=== PATIENT | male | born 1970 | race Caucasian/White ===

== ENCOUNTER 2016-08-19 10:45 | Inpatient (IN) | payer OTHER ==
[2016-08-19] VITALS (7 sets, daily range): BP systolic 103–146; BP diastolic 60–88; PULSE 83–89; RESP 18–22; TEMP 97.1–98.4; O2SAT 95–97
[~2016-08-19] VITALS: Ht 167.6 cm; Wt 53.9 kg
[~2016-08-19 10:45] MED LIST: CYMB30CA PO; DARU600 PO; DICL75 PO; ENTE1TAB PO; GABA300C3 PO; LAMI150T PO; PLAV75TA PO; PYRI100T4 PO; RITO100 PO; TEMA15 PO; TENO300 PO; VALA1TAB PO
[2016-08-19] MEDS ORDERED: SOMA350T PO (11:55)
[2016-08-19] MEDS ORDERED: ROSU1TAB4 PO (11:55)
[2016-08-19] MEDS ORDERED: ASPI81CH37 CHEW (11:55)
[2016-08-19] MEDS ORDERED: RITO100 PO (11:55)
[2016-08-19] MEDS ORDERED: ACYC800T PO (11:55)
[2016-08-19] MEDS ORDERED: DICL1GEL7 TOPICAL (11:55)
[2016-08-19] MEDS ORDERED: FENT75DI T-DERMAL (11:55)
[2016-08-19] MEDS ORDERED: DARU800T PO (11:55)
[2016-08-19] MEDS ORDERED: PLAV75TA29 PO (11:55)
[2016-08-19] MEDS ORDERED: DOCU100C PO (11:55)
[2016-08-19] MEDS ORDERED: EMTR1TAB4 PO (11:55)
[2016-08-19] MEDS ORDERED: SENN8.6T25 PO (11:55)
[2016-08-19] MEDS ORDERED: ENAL2.5T PO (11:55)
[2016-08-19] MEDS ORDERED: CALC1TAB87 PO (11:55)
[2016-08-19] MEDS ORDERED: ENTE1TAB PO (11:55)
[2016-08-19] MEDS ORDERED: TRAM50TA PO (11:55)
[2016-08-19] MEDS ORDERED: INTE200T PO (11:55)
[2016-08-19] MEDS ORDERED: METF1000 PO (11:55)
[2016-08-19 11:58] LABS: AUTOMATED NEUTROPHIL # 6.3 TH/MM3 (1.8-7.7); BASOPHIL # 0.1 TH/MM3 (0-0.2); BASOPHIL % 0.6 % (0.0-2.0); EOSINOPHIL # 0.4 TH/MM3 (0-0.4); EOSINOPHIL % 3.2 % (0.0-4.0); HEMATOCRIT 44.6 % (39.0-51.0); HEMO FLAGS DIFF FINAL; LYMPH % 30.4 % (9.0-44.0); LYMPHOCYTE # 3.4 TH/MM3 (1.0-4.8); MEAN CELL VOLUME 91.8 FL (80.0-100.0); MEAN CORPUSCULAR HEMOGLOBIN 31.5 PG (27.0-34.0); MEAN CORPUSCULAR HGB CONC 34.3 % (32.0-36.0); NEUT % 56.8 % (16.0-70.0); PLATELET COUNT 168 TH/MM3 (150-450); RED BLOOD COUNT 4.86 MIL/MM3 (4.50-5.90); RED CELL DISTRIBUTION WIDTH 14.1 % (11.6-17.2)
[2016-08-19] MEDS: SODIUM CHLORIDE 0.9% 1000 ML IV SCH (12:00)
[2016-08-19 12:19] LABS: APTT (PATIENT) 25.6 SEC (24.3-30.1); INTERNATIONAL NORMALIZED RATIO 0.9 RATIO
--- NOTE | 2016-08-19 12:51 | HHI.HP ---
[facility] Gerald Cabrales MD Admission Diagnosis Diagnoses: (1) right spontaneous pneumothorat Diagnosis: Principal Chief Complaint: Shortness of breath Travel History International Travel<30 Days: No Contact w/Intl Traveler <30 Da: No Traveled to Known Affected Are: No History of Present Illness Patient is a very pleasant 45-year-old male with known history of HIV followed closely by Dr. Cabrales. Patient with a history of type 2 diabetes on metformin. States very good hypoglycemic awareness. His last CD4 count was in the 800s. Last Viral load is 0. About 3 days prior to admission patient developed a sudden onset of sharp right sided chest pain. Later that evening with pleuritic component of the chest pain. Patient states shortness of breath with deep inspiration and with coughing. This is worse with laying down and. He also expressed some feeling of something snapping inside his right side of the chest. The patient denies any recent trauma. Denies any fever, chills or any sputum production. He was seen in the clinic by Dr. Cabrales who ordered a chest x-ray which came back positive for a right sided pneumothorax and patient was sent here for chest tube insertion and further evaluation. Review of Systems Constitutional: DENIES: Diaphoretic episodes, Fatigue, Fever, Weight gain, Weight loss, Chills, Dizziness, Change in appetite, Night Sweats Endocrine: DENIES: Heat/cold intolerance, Polydipsia, Polyuria, Polyphagia Eyes: DENIES: Blurred vision, Diplopia, Eye inflammation, Eye pain, Vision loss , Photosensitivity, Double Vision Ears, nose, mouth, throat: DENIES: Tinnitus, Hearing loss, Vertigo, Nasal discharge, Oral lesions, Throat pain, Hoarseness, Ear Pain, Running Nose, Epistaxis, Sinus Pain, Toothache, Odynophagia Respiratory: DENIES: Apneas, Cough, Snoring, Wheezing, Hemoptysis, Sputum production, Shortness of breath Cardiovascular: DENIES: Chest pain, Palpitations, Syncope, Dyspnea on Exertion , PND, Lower Extremity Edema, Orthopnea, Claudication Gastrointestinal: COMPLAINS OF: Diarrhea Genitourinary: DENIES: Sexual dysfunction, Urinary frequency, Urinary incontinence, Urgency, Hematuria, Dysuria, Nocturia, Penile Discharge, Testicular Pain, Testicular Swelling Musculoskeletal: COMPLAINS OF: Back pain (chronic pain), DENIES: Joint pain, Muscle aches, Stiffness, Joint Swelling, Neck pain Integumentary: DENIES: Abnormal pigmentation, Nail changes, Pruritus, Rash Hematologic/lymphatic: DENIES: Bruising, Lymphadenopathy Immunologic/allergic: DENIES: Eczema, Urticaria Neurologic: DENIES: Abnormal gait, Headache, Localized weakness, Paresthesias, Seizures, Speech Problems, Tremor, Poor Balance Psychiatric: DENIES: Anxiety, Confusion, Mood changes, Depression, Hallucinations, Agitation, Suicidal Ideation, Homicidal Ideation, Delusions Past Family Social History Past Medical History HIV Chronic pain Diabetes type 2 [id number] Hypertension 3 years ago had an episode of difficulty walking and a head CT done there showed questionable and was started on Plavix. Hdenies any history of acute coronary syndrome or Past Surgical History No major surgeries Reported Medications Ultram 50 mg 1 tab every 12 hours as needed for breakthrough pain. Duragesic 25 g one patch every 48 hours last change August 18 Glucophage 1 g twice a day Descovy 600 mg 2 tablets twice a day Ecotrin 81 mg 1 tablet daily Crestor 5 mg 1 tab 3 times a week Wednesday at bedtime carisoprodol 1 tab at bedtime Caltrate with vitamin D 3 800 units 1 tab twice a day Vitamin D2 50,000 units 1 capsule daily once a month Vasotec 2.5 mg daily at bedtime Norvir 100 mg 2 tabs a Intelence 200 mg 1 tab twice a voltaren 1% gel apply 4 g by transdermal at bedtime Plavix 75 mg daily Senna 8.6 mg 1 tab twice a baraclude 1 mg the right daily Acyclovir 800 mg 1 tab daily Colace 100 mg twice a day Allergies: Coded Allergies: Tetanus Toxoid (Unverified Allergy, Unknown, swelling all over and hives, 08/19/16) Family History Mother has some heart issues. history of malignancy in the family- patient very specific Social History Former smoker no history of IV drug use, no alcohol use Physical Exam Vital Signs Vital Signs Date Time Temp Pulse Resp B/P Pulse Ox O2 Delivery O2 Flow Rate FiO2 08/19/16 11:14 98.4 89 20 146/88 95 Physical Exam GENERAL: This is a well-nourished, well-developed patient, in no apparent distress. SKIN: No rashes, ecchymoses or lesions. Cool and dry. HEAD: Atraumatic. Normocephalic. EYES: Pupils equal round and reactive. Extraocular motions intact. No scleral icterus. No injection or drainage. ENT: Nose without bleeding, purulent drainage Throat without erythema, tonsillar hypertrophy or exudate. . Airway patent. No oral thrush NECK: Trachea midline. No JVD or lymphadenopathy. Supple, nontender, no meningeal signs. CARDIOVASCULAR: Regular rate and rhythm without murmurs, gallops, or rubs. RESPIRATORY: Decreased breath sounds on the right side, no Rales no wheezes GASTROINTESTINAL: Abdomen soft, non-tender, nondistended. No hepato-splenomegaly , or palpable masses. No guarding. MUSCULOSKELETAL: Extremities without clubbing, cyanosis, or edema. No joint tenderness, effusion, or edema noted. No calf tenderness. Negative Homans sign bilaterally. NEUROLOGICAL: Awake and alert. Cranial nerves II through XII intact. Motor and sensory grossly within normal limits. Five out of 5 muscle strength in all muscle groups. Normal speech. Laboratory Laboratory Tests Test 08/19/16 11:35 White Blood Count 11.0 Red Blood Count 4.86 Hemoglobin 15.3 Hematocrit 44.6 Mean Corpuscular Volume 91.8 Mean Corpuscular Hemoglobin 31.5 Mean Corpuscular Hemoglobin 34.3 Concent Red Cell Distribution Width 14.1 Platelet Count 168 Mean Platelet Volume 8.0 Neutrophils (%) (Auto) 56.8 Lymphocytes (%) (Auto) 30.4 Monocytes (%) (Auto) 9.0 Eosinophils (%) (Auto) 3.2 Basophils (%) (Auto) 0.6 Neutrophils # (Auto) 6.3 Lymphocytes # (Auto) 3.4 Monocytes # (Auto) 1.0 Eosinophils # (Auto) 0.4 Basophils # (Auto) 0.1 CBC Comment DIFF FINAL Differential Comment Prothrombin Time 10.0 Prothromb Time International 0.9 Ratio Activated Partial 25.6 Thromboplast Time Result Diagram: 08/19/16 5249 Assessment and Plan Assessment and Plan 45-year-old male presenting with increasing shortness of breath past 3 days and on evaluation Right Spontaneous pneumothorax. Interventional radiology has been consulted for chest tube insertion evaluation. 02 NC 2L HIV. Patient with very good follow-up and compliance with medications. continue on HIV medications per patient last viral load 0 Diabetes type 2. ADA diet. Monitor blood sugars in-house History of abnormal CT head- sounds like an "old spot". Was started on Plavix as OP by PCP. We'll hold for now as patient is for procedure. Hypertension. Continue on Vasotec 2.5 mg daily and aspirin daily. Chronic pain. Will continue on Duragesic patch every 48 hours. Will increase Ultram to every 6 when necessary for pain. Discussed with patient. Code Status Full code Physician Certification 2 Midnight Certification Type: Admission for Inpatient Services Order for Inpatient Services The services are ordered in accordance with Medicare regulations or non- Medicare payer requirements, as applicable. In the case of services not specified as inpatient-only, they are appropriately provided as inpatient services in accordance with the 2-midnight benchmark. Estimated LOS (days): 3 days is the estimated time the patient will need to remain in the hospital, assuming treatment plan goals are met and no additional complications. Post-Hospital Plan: Not yet determined Bossman Duke MD August 19, 2016 12:51
[2016-08-19] MEDS ORDERED: LORazepam 2 MG/ML VIAL ONE (13:32)
[2016-08-19] MEDS ORDERED: fentaNYL CITRATE 250 MCG/5 ML AMP ONE (13:53)
--- NOTE | 2016-08-19 14:31 | PD.RAD ---
Post Procedure Progress Note Pre Procedure Diagnosis: (1) right spontaneous pneumothorat Post Procedure Diagnosis: (1) right spontaneous pneumothorat Procedure Date: August 19, 2016 Supervising Radiologist: Manuelito Olguin Proceduralist/Assist: Leticia Avalos, RT(R), Jimbo Malik RT(R)() Estimated blood loss: <5 ml Anesthesia: Local Plan of Activity Patient to Unit: Nursing Unit Patient Condition: Good Additional Comments: Placed 10F [place] Catheter. Pleural septations precluded ideal apical placement. See PACS Report for procedural detail/treatment Manuelito Olguin MD August 19, 2016 14:31
[2016-08-19] MEDS ORDERED: oxyCODONE/ACETAMINOPHEN 10 MG/325 MG TAB PO ONE (15:00)
--- NOTE | 2016-08-19 15:44 | RADRPT ---
EXAM DATE/TIME: 08/19/2016 13:48 [facility] COMPARISON: No previous studies available for comparison. INDICATIONS : Patient with a history right pneumothorax. MEDICAL HISTORY : CVA HIV Hepatitis B SURGICAL HISTORY : Nose repair ENCOUNTER: Initial ACUITY: 4 - 6 days PAIN SCORE: 5/10 LOCATION: Back FLUORO TIME: 2.6 minutes IMAGE SERIES: 1 SEDATION TIME: 30 minutes MEDICATION(S): 1.) 100 mcg fentanyl (Sublimaze) IV 2.) 1 mg lorazepam (Ativan) IV DEVICE(S): 1.) 10 [place] non-locking catheter PROCEDURE : 1. Fluoroscopically guided chest tube placement. 2. Conscious sedation with continuous EKG and oximetry monitoring. The risks, benefits and alternatives to the procedure were explained and verbal and written consent w as obtained. The site was prepped in sterile fashion. Full sterile technique was used, including ca p, mask, sterile gloves and gown and a large sterile sheet. Hand hygiene and 2% chlorhexidine and/or betadine/alcohol prep was utilized per protocol for cutaneous antisepsis. The skin and subcutaneous tissues were infiltrated with local anesthetic solution. With fluoroscopic guidance the chest was punctured between the first and second interspace and the pr escribed catheter was placed at the lung apex. Catheter could not be ideally positioned due to appare nt septations in the pleural space which deflected the catheter medially and inferiorly. Ultimately, the catheter was placed in the lateral superior hemithorax. Wall suction was applied. Post procedure images demonstrate satisfactory position of the tube. The catheter was sutured in place and a Percu -Stay was applied. Conscious sedation was performed with the prescribed dosages and duration as above in the presence of an independent trained radiology nurse to assist in the monitoring of the patient. EKG and oximetry remained stable throughout the procedure. The patient tolerated the procedure well and there were n o complications. The patient was sent to post anesthesia recovery in stable condition. CONCLUSION: 1. Fluoroscopic guided placement of right-sided chest tube for treatment of spontaneous pneumothorax, as above. 2. Apparent septations in the right pleural space precluded ideal apical positioning of the chest tub eSherrell Olguin MD on August 19, 2016 at 15:38 Board Certified Radiologist. This report was verified electronically.
[2016-08-19] MEDS: traMADol HCL 50 MG TAB PO PRN ×2 (16:44→20:54)
[2016-08-19] MEDS: ATORVASTATIN 10 MG TAB PO SCH (20:49)
[2016-08-19] MEDS: DOCUSATE SODIUM 100 MG CAP PO SCH (20:49)
[2016-08-19] MEDS: RITONAVIR 100 MG TAB PO SCH (20:49)
[2016-08-19] MEDS: DARUNAVIR 600 MG TAB PO SCH (20:50)
[2016-08-19] MEDS: ENALAPRIL MALEATE 2.5 MG TAB PO SCH (20:50)
[2016-08-19] MEDS: SENNOSIDES 8.6 MG TAB PO SCH (20:50)
[2016-08-19] MEDS: CALCIUM/VITAMIN D 250 MG/125 U TAB PO SCH (20:50)
[2016-08-19] MEDS: CARISOPRODOL 350 MG TAB PO PRN (20:54)
[2016-08-19] MEDS: DICLOFENAC TOPICAL SCH (20:57)
[2016-08-20] VITALS: BP 117/73; PULSE 86; RESP 20; TEMP 96.3; O2SAT 98
[2016-08-20] MEDS: traMADol HCL 50 MG TAB PO PRN ×5 (03:38→23:00)
[2016-08-20 08:00] VITALS: BP 119/77; PULSE 82; RESP 17; TEMP 97.1; O2SAT 97
[2016-08-20 08:12] VITALS: O2SAT 98
[2016-08-20] MEDS: CALCIUM/VITAMIN D 250 MG/125 U TAB PO SCH ×2 (08:46→21:00)
[2016-08-20] MEDS: RITONAVIR 100 MG TAB PO SCH ×2 (08:46→21:00)
[2016-08-20] MEDS: DOCUSATE SODIUM 100 MG CAP PO SCH ×2 (08:46→21:00)
[2016-08-20] MEDS: SENNOSIDES 8.6 MG TAB PO SCH ×2 (08:47→21:00)
[2016-08-20] MEDS: ACYCLOVIR 800 MG TAB PO SCH (08:47)
[2016-08-20] MEDS: ENTECAVIR 0.5 MG TAB PO SCH (08:54)
[2016-08-20] MEDS: ETRAVIRINE 200 MG PO SCH (08:55)
[2016-08-20] MEDS: PATIENT OWN MEDICATION (Emtricitabine-Tenofovir Alafenamide (Descovy) 1 TAB) PO SCH (08:56)
[2016-08-20] MEDS ORDERED: fentaNYL 75 MCG/HR PATCH T-DERMAL SCH ×2 (09:00→21:00)
--- NOTE | 2016-08-20 10:32 | HHI.PR ---
Subjective Remarks pain -on chest tube site with deep inspiration afebrile, no nausea or vomiting Objective Vitals Vital Signs Date Time Temp Pulse Resp B/P Pulse Ox O2 Delivery O2 Flow Rate FiO2 08/20/16 08:12 98 21 08/20/16 08:00 97.1 82 17 119/77 97 08/20/16 00:00 96.3 86 20 117/73 98 08/19/16 20:00 97.2 87 22 106/68 97 08/19/16 16:00 97.1 83 18 130/83 97 08/19/16 15:30 88 20 103/60 96 08/19/16 15:00 87 20 109/67 96 08/19/16 14:30 87 20 110/79 96 08/19/16 14:15 98.4 88 20 131/84 97 08/19/16 11:14 98.4 89 20 146/88 95 I/O 08/19/16 08/19/16 08/19/16 08/20/16 08/20/16 08/20/16 07:00 15:00 23:00 07:00 15:00 23:00 Intake Total 320 ml 120 ml Output Total 300 ml 450 ml Balance 20 ml -330 ml Intake Oral 320 ml 120 ml Output Urine Total 300 ml 450 ml # Bowel Movements 0 0 Result Diagram: 08/19/16 1135 Imaging Last Impressions Chest Tube Insertion 08/19/16 1318 Signed Impressions: Service Date/Time: Friday, August 19, 2016 13:48 - CONCLUSION: 1. Fluoroscopic guided placement of right-sided chest tube for treatment of spontaneous pneumothorax, as above. 2. Apparent septations in the right pleural space precluded ideal apical positioning of the chest tube. Manuelito Olguin MD Objective Remarks awake and alert, no acute distress anicteric lungs + breath sounds equal regular rhythm abdomen soft, nontender extremities no edema, no calf swelling or tenderness Procedures 08/19- Chest tube placement- right A/P Problem List: (1) right spontaneous pneumothorat Status: Acute Assessment and Plan 45-year-old male presenting with increasing shortness of breath past 3 days and on evaluation Right sided Spontaneous pneumothorax S/P Chest tube placement- 08/19 Interventional radiology ff for chest tube management. HIV. Patient with very good follow-up and compliance with medications. continue on HIV medications per patient last viral load 0 Diabetes type 2. ADA diet. Monitor blood sugars in-house History of abnormal CT head- sounds like an "old spot". Was started on Plavix as OP by PCP. We'll hold for now Hypertension. Continue on Vasotec 2.5 mg daily and aspirin daily. Chronic pain. Will continue on Duragesic patch every 48 hours. Ultram to every 4- 6 when necessary for pain. TEDS for DVT prophylaxis Bossman Duke MD Aug 20, 2016 10:32
[2016-08-20] MEDS: SODIUM CHLORIDE 0.9% 1000 ML IV SCH (11:46)
[2016-08-20 12:00] VITALS: BP 130/79; PULSE 85; RESP 17; TEMP 97.3; O2SAT 97
--- NOTE | 2016-08-20 15:05 | RADRPT ---
EXAM DATE/TIME: 08/20/2016 14:29 [facility] COMPARISON: No previous studies available for comparison. INDICATIONS : Pneumothorax, Chest pressure. MEDICAL HISTORY : Hepatitis B. HIV. Cva SURGICAL HISTORY : None. ENCOUNTER: Initial ACUITY: 1 day PAIN SCORE: 5/10 LOCATION: Bilateral chest FINDINGS: There is a right-sided chest tube in place without residual pneumothorax. Lungs are otherwise clear. Cardiomediastinal contours are within normal limits. Bony thorax is intact. CONCLUSION: 1. Right-sided chest tube in good position with interval resolution of right-sided pneumothorax. Manuelito Olguin MD on August 20, 2016 at 14:56 Board Certified Radiologist. This report was verified electronically.
[2016-08-20 16:00] VITALS: BP 135/84; PULSE 83; RESP 17; TEMP 97.8; O2SAT 96
[2016-08-20 20:00] VITALS: BP 131/86; PULSE 88; RESP 20; TEMP 97.7; O2SAT 96
[2016-08-20] MEDS ORDERED: FENT25DI T-DERMAL (20:40)
[2016-08-20] MEDS: DICLOFENAC TOPICAL SCH (21:00)
[2016-08-20] MEDS: ATORVASTATIN 10 MG TAB PO SCH (21:00)
[2016-08-20] MEDS: ENALAPRIL MALEATE 2.5 MG TAB PO SCH (21:00)
[2016-08-20] MEDS: DARUNAVIR 600 MG TAB PO SCH (21:00)
[2016-08-20] MEDS ORDERED: FENTANYL 75 MCG/HR TOPICAL SCH (21:00)
[2016-08-20] MEDS: CARISOPRODOL 350 MG TAB PO PRN (23:00)
[2016-08-21] VITALS: BP 126/82; PULSE 84; RESP 18; TEMP 98.8; O2SAT 97
--- NOTE | 2016-08-21 06:55 | RADRPT ---
EXAM DATE/TIME: 08/21/2016 06:18 [facility] COMPARISON: CHEST EXPIRATION ONLY, August 20, 2016, 14:29. INDICATIONS : Short of breath, evaluate right side pneumothorax and chest tube MEDICAL HISTORY : Hepatitis B. SURGICAL HISTORY : None. ENCOUNTER: Subsequent ACUITY: 2 days PAIN SCORE: 8/10 LOCATION: Right chest FINDINGS: The cardiac silhouette is normal in transverse diameter. A right chest tube is in place. There is no evidence of pneumothorax. The lungs are free of acute parenchymal opacity. No effusions are identifie d. CONCLUSION: 1. There is no evidence of pneumothorax. Adria Shelby MD on August 21, 2016 at 6:53 Board Certified Radiologist. This report was verified electronically.
[2016-08-21 08:00] VITALS: BP 121/72; PULSE 85; RESP 18; TEMP 96.9; O2SAT 96
[2016-08-21] MEDS: traMADol HCL 50 MG TAB PO PRN ×3 (08:39→20:27)
[2016-08-21] MEDS: ETRAVIRINE 200 MG PO SCH (08:40)
[2016-08-21] MEDS: CALCIUM/VITAMIN D 250 MG/125 U TAB PO SCH ×2 (08:40→20:16)
[2016-08-21] MEDS: DOCUSATE SODIUM 100 MG CAP PO SCH ×2 (08:40→20:16)
[2016-08-21] MEDS: ENTECAVIR 0.5 MG TAB PO SCH (08:40)
[2016-08-21] MEDS: PATIENT OWN MEDICATION (Emtricitabine-Tenofovir Alafenamide (Descovy) 1 TAB) PO SCH (08:40)
[2016-08-21] MEDS: RITONAVIR 100 MG TAB PO SCH ×2 (08:40→20:16)
[2016-08-21] MEDS: SODIUM CHLORIDE 0.9% 1000 ML IV SCH (08:41)
[2016-08-21] MEDS: ACYCLOVIR 800 MG TAB PO SCH (08:41)
[2016-08-21] MEDS: SENNOSIDES 8.6 MG TAB PO SCH ×2 (08:41→20:17)
--- NOTE | 2016-08-21 08:50 | HHI.PR ---
Subjective Remarks overnight, chest tube clamped some pain on chest tube site and pain on deep breathing Objective Vitals Vital Signs Date Time Temp Pulse Resp B/P Pulse Ox O2 Delivery O2 Flow Rate FiO2 08/21/16 00:00 98.8 84 18 126/82 97 08/20/16 20:00 97.7 88 20 131/86 96 08/20/16 16:00 97.8 83 17 135/84 96 08/20/16 12:00 97.3 85 17 130/79 97 I/O 08/20/16 08/20/16 08/20/16 08/21/16 08/21/16 08/21/16 07:00 15:00 23:00 07:00 15:00 23:00 Intake Total 120 ml 1200 ml 440 ml 240 ml Output Total 450 ml 600 ml 550 ml Balance -330 ml 1200 ml -160 ml -310 ml Intake Oral 120 ml 1200 ml 440 ml 240 ml IV Total 0 ml Output Urine Total 450 ml 600 ml 550 ml Chest Tube Drainage Total 0 ml # Voids 3 # Bowel Movements 0 0 0 0 Result Diagram: 08/19/16 1135 Imaging Last Impressions Chest X-Ray 08/21/16 0600 Signed Impressions: Service Date/Time: Sunday, August 21, 2016 06:18 - CONCLUSION: 1. There is no evidence of pneumothorax. Adria Shelby MD Chest Tube Insertion 08/19/16 1318 Signed Impressions: Service Date/Time: Friday, August 19, 2016 13:48 - CONCLUSION: 1. Fluoroscopic guided placement of right-sided chest tube for treatment of spontaneous pneumothorax, as above. 2. Apparent septations in the right pleural space precluded ideal apical positioning of the chest tube. Manuelito Olguin MD Objective Remarks awake and alert, no acute distress anicteric lungs + breath sounds equal, no rales or wheezes, CT in place, right regular rhythm abdomen soft, nontender extremities no edema, no calf swelling or tenderness Procedures 08/19- Chest tube placement- right A/P Problem List: (1) right spontaneous pneumothorat Status: Acute Assessment and Plan 45-year-old male presenting with increasing shortness of breath past 3 days and on evaluation Right sided Spontaneous pneumothorax S/P Chest tube placement- 08/[address] clamped since last evening 08/20. tolerated well. Interventional radiology ff for chest tube management.. Repeat CXR this am= PTX. resolved -Likely will have CT removed today. DC if cleared with IR HIV. Patient with very good follow-up and compliance with medications. continue on HIV medications per patient last viral load 0 Diabetes type 2. ADA diet. Monitor blood sugars in-house. good readings History of abnormal CT head- sounds like an "old spot". Was started on Plavix as OP by PCP. We'll hold for now Hypertension. Continue on Vasotec 2.5 mg daily and aspirin daily. Chronic pain. Will continue on Duragesic patch every 48 hours. Ultram to every 4- 6 when necessary for pain. TEDS for DVT prophylaxis Increase activity as tolerated Bossman Duke MD Aug 21, 2016 08:50
[2016-08-21 12:00] VITALS: BP 109/62; PULSE 89; RESP 18; TEMP 97.4; O2SAT 95
--- NOTE | 2016-08-21 12:24 | RADRPT ---
EXAM DATE/TIME: 08/21/2016 11:42 [facility] COMPARISON: CHEST EXPIRATION ONLY, August 20, 2016, 14:29. CHEST EXPIRATION ONLY, August 21, 2016, 6:18. CHEST SING LE AP, February 05, 2014, 17:19. INDICATIONS : Chest Tube Removal MEDICAL HISTORY : Pneumothorax,Hepatitis B., HIV., Cva SURGICAL HISTORY : Nose repair ENCOUNTER: Subsequent ACUITY: 3 days PAIN SCORE: 0/10 LOCATION: Bilateral chest FINDINGS: A single view of the chest demonstrates the lungs to be symmetrically aerated without evidence of mas s or effusion. Minimal linear atelectasis/scarring of the left hemidiaphragm. Right-sided thoracostom y tube has been removed. There is no residual pneumothorax. The cardiomediastinal contours are unrema rkable. Osseous structures are intact. CONCLUSION: 1. Interval removal of the right-sided thoracostomy tube without residual or recurrent pneumothorax 2. Minimal atelectatic changes/scarring above the left hemidiaphragm. 3. Lungs are otherwise clear with no acute infiltrate.. Wesly Trejo MD on August 21, 2016 at 12:17 Board Certified Radiologist. This report was verified electronically.
--- NOTE | 2016-08-21 15:38 | RADRPT ---
EXAM DATE/TIME: 08/21/2016 00:00 [facility] COMPARISON: No previous studies available for comparison. INDICATIONS : S/P pneumothorax DEVICE(S): 1.) Vaseline occlusive dressing PROCEDURE : Chest tube removal. Using aseptic technique the previously placed chest tube was easily removed in one piece and Vaseline gauze and sterile dressing was applied. Chest radiograph is to be obtained. CONCLUSION: Uncomplicated chest tube removal. Manuelito Olguin MD on August 21, 2016 at 11:49 Board Certified Radiologist. This report was verified electronically.
[2016-08-21 16:00] VITALS: BP 117/71; PULSE 80; RESP 18; TEMP 97; O2SAT 95
[2016-08-21 20:00] VITALS: BP 129/87; PULSE 79; RESP 18; TEMP 98.2; O2SAT 97
[2016-08-21] MEDS: DARUNAVIR 600 MG TAB PO SCH (20:16)
[2016-08-21] MEDS: ATORVASTATIN 10 MG TAB PO SCH (20:16)
[2016-08-21] MEDS: DICLOFENAC TOPICAL SCH (20:17)
[2016-08-21] MEDS: ENALAPRIL MALEATE 2.5 MG TAB PO SCH (20:17)
[2016-08-21] MEDS: CARISOPRODOL 350 MG TAB PO PRN (20:26)
[2016-08-22] VITALS: BP 109/73; PULSE 85; RESP 20; TEMP 97.6; O2SAT 96
[2016-08-22 08:00] VITALS: BP 117/72; PULSE 67; RESP 18; TEMP 96.3; O2SAT 95
[2016-08-22] MEDS: ACYCLOVIR 800 MG TAB PO SCH (09:00)
[2016-08-22] MEDS: DOCUSATE SODIUM 100 MG CAP PO SCH (09:00)
[2016-08-22] MEDS: SENNOSIDES 8.6 MG TAB PO SCH (09:00)
[2016-08-22] MEDS: CALCIUM/VITAMIN D 250 MG/125 U TAB PO SCH (09:00)
[2016-08-22] MEDS: PATIENT OWN MEDICATION (Emtricitabine-Tenofovir Alafenamide (Descovy) 1 TAB) PO SCH (09:00)
[2016-08-22] MEDS: ETRAVIRINE 200 MG PO SCH (09:00)
[2016-08-22] MEDS: RITONAVIR 100 MG TAB PO SCH (09:00)
[2016-08-22] MEDS: ENTECAVIR 0.5 MG TAB PO SCH (09:00)
[2016-08-22] MEDS ORDERED: fentaNYL 75 MCG/HR PATCH T-DERMAL SCH (09:00)
--- NOTE | 2016-08-22 09:23 | HHI.PR ---
Subjective Remarks doing great up and ambualting- maintaining sats at room air minimal pain Objective Vitals Vital Signs Date Time Temp Pulse Resp B/P Pulse Ox O2 Delivery O2 Flow Rate FiO2 08/22/16 00:00 97.6 85 20 109/73 96 08/21/16 20:00 98.2 79 18 129/87 97 08/21/16 16:00 97.0 80 18 117/71 95 08/21/16 12:00 97.4 89 18 109/62 95 I/O 08/21/16 08/21/16 08/21/16 08/22/16 08/22/16 08/22/16 07:00 15:00 23:00 07:00 15:00 23:00 Intake Total 240 ml 1000 ml 480 ml 480 ml Output Total 550 ml Balance -310 ml 1000 ml 480 ml 480 ml Intake Oral 240 ml 1000 ml 480 ml 480 ml IV Total 0 ml Output Urine Total 550 ml Chest Tube Drainage Total 0 ml # Voids 2 2 2 # Bowel Movements 0 0 Result Diagram: 08/19/16 1135 Imaging Last Impressions Chest X-Ray 08/21/16 1200 Signed Impressions: Service Date/Time: Sunday, August 21, 2016 11:42 - CONCLUSION: 1. Interval removal of the right-sided thoracostomy tube without residual or recurrent pneumothorax 2. Minimal atelectatic changes/scarring above the left hemidiaphragm. 3. Lungs are otherwise clear with no acute infiltrate.. Wesly Trejo MD Tunnelled Chest Tube Removal 08/21/16 0000 Signed Impressions: Service Date/Time: Sunday, August 21, 2016 00:00 - CONCLUSION: Uncomplicated chest tube removal. Manuelito Olguin MD Chest Tube Insertion 08/19/16 1318 Signed Impressions: Service Date/Time: Friday, August 19, 2016 13:48 - CONCLUSION: 1. Fluoroscopic guided placement of right-sided chest tube for treatment of spontaneous pneumothorax, as above. 2. Apparent septations in the right pleural space precluded ideal apical positioning of the chest tube. Manuelito Olguin MD Objective Remarks awake and alert, no acute distress anicteric lungs + breath sounds equal, no rales or wheezes, CT site- no erythema, dry. regular rhythm abdomen soft, nontender extremities no edema, no calf swelling or tenderness Procedures 08/19- Chest tube placement- right A/P Problem List: (1) right spontaneous pneumothorat Status: Acute Assessment and Plan 45-year-old male presenting with increasing shortness of breath past 3 days and on evaluation Right sided Spontaneous pneumothorax S/P Chest tube placement- 08/[address] clamped since last evening 08/20. tolerated well. CT removed 08/21. repeat CXR resolved pneumothorax HIV. Patient with very good follow-up and compliance with medications. continue on HIV medications per patient last viral load 0 Diabetes type 2. ADA diet. Monitor blood sugars in-house. good readings History of abnormal CT head- sounds like an "old spot". Was started on Plavix as OP by PCP. Hypertension. Continue on Vasotec 2.5 mg daily and aspirin daily. Chronic pain. Will continue on Duragesic patch every 48 hours. Ultram to every 4- 6 when necessary for pain. TEDS for DVT prophylaxis Increase activity as tolerated DC home today with OP ff up with Bossman Garcia MD Aug 22, 2016 09:23
[2016-08-22] MEDS ORDERED: ULTR50TA5 PO (09:26)
[2016-08-22] MEDS ORDERED: REMOVE OLD DURAGESIC (FENTANYL) PATCH T-DERMAL SCH (21:00)
--- NOTE | 2016-08-28 08:38 | HHI.DS ---
Discharge Summary Admission Date August 19, 2016 at 14:30 Discharge Date: Aug 22, 2016 Admitting Diagnosis right Pneumothorax (1) right spontaneous pneumothorat Diagnosis: Principal Procedures 08/19- Chest tube placement- right Brief History - From Admission Patient is a very pleasant 45-year-old male with known history of HIV followed closely by Dr. Lin. Patient with a history of type 2 diabetes on metformin. States very good hypoglycemic awareness. His last CD4 count was in the 800s. Last Viral load is 0. About 3 days prior to admission patient developed a sudden onset of sharp right sided chest pain. Later that evening with pleuritic component of the chest pain. Patient states shortness of breath with deep inspiration and with coughing. This is worse with laying down and. He also expressed some feeling of something snapping inside his right side of the chest. The patient denies any recent trauma. Denies any fever, chills or any sputum production. He was seen in the clinic by Dr. Lin who ordered a chest x-ray which came back positive for a right sided pneumothorax and patient was sent here for chest tube insertion and further evaluation. Imaging Last Impressions Chest X-Ray 08/21/16 1200 Signed Impressions: Service Date/Time: Sunday, August 21, 2016 11:42 - CONCLUSION: 1. Interval removal of the right-sided thoracostomy tube without residual or recurrent pneumothorax 2. Minimal atelectatic changes/scarring above the left hemidiaphragm. 3. Lungs are otherwise clear with no acute infiltrate.. Wesly Trejo MD Tunnelled Chest Tube Removal 08/21/16 0000 Signed Impressions: Service Date/Time: Sunday, August 21, 2016 00:00 - CONCLUSION: Uncomplicated chest tube removal. Manuelito Olguin MD Chest Tube Insertion 08/19/16 1318 Signed Impressions: Service Date/Time: Friday, August 19, 2016 13:48 - CONCLUSION: 1. Fluoroscopic guided placement of right-sided chest tube for treatment of spontaneous pneumothorax, as above. 2. Apparent septations in the right pleural space precluded ideal apical positioning of the chest tube. Manuelito Olguin MD PE at Discharge awake and alert, no acute distress anicteric lungs + breath sounds equal, no rales or wheezes, CT site- no erythema, dry. regular rhythm abdomen soft, nontender extremities no edema, no calf swelling or tenderness Pt update on day of discharge no chest pain or shortness of breath , ambulating, good sats at room air Hospital Course 45-year-old male presenting with increasing shortness of breath past 3 days and on evaluation Right sided Spontaneous pneumothorax S/P Chest tube placement- 08/[address] clamped since last evening 08/20. tolerated well. CT removed 08/21. repeat CXR resolved pneumothorax HIV. Patient with very good follow-up and compliance with medications. continue on HIV medications per patient last viral load 0 Diabetes type 2. ADA diet. Monitor blood sugars in-house. good readings History of abnormal CT head- sounds like an "old spot". Was started on Plavix as OP by PCP. Hypertension. Continue on Vasotec 2.5 mg daily and aspirin daily. Chronic pain. Will continue on Duragesic patch every 48 hours. Ultram to every 4- 6 when necessary for pain. TEDS for DVT prophylaxis Increase activity as tolerated DC home today with OP ff up with Dr. Lin Pt Condition on Discharge: Stable Discharge Disposition: Discharge Home Discharge Time: <= 30 minutes Discharge Instructions DIET: Follow Instructions for: Heart Healthy Diet, Diabetic Diet Activities you can perform: Weight Bearing as Yue Activities to Avoid: Concussion Sports, Contact Sports, Strenuous Activity Follow up Referrals: PCP Follow-up - 08/24/16 with S[facility] New Medications: Tramadol (Ultram) 50 Mg Tab 50 MG PO Q6HR PRN RIGHT SIDED CHEST PAIN #25 Ref 0 TAB Continued Medications: Acyclovir (Acyclovir) 800 Mg Tab 800 MG PO DAILY Mgmt Viral Infection Ref 0 TAB Aspirin (Aspirin Low Dose) 81 Mg Chew 81 MG CHEW DAILY Ref 0 TAB Calcium Carbonate-Cholecalciferol (Calcium 600 with Vitamin D) 600-400 mg-Unit Tab 1 TAB PO BID Calcium Supplement Ref 0 TAB Carisoprodol (Soma) 350 Mg Tab 350 MG PO HS PRN PAIN Ref 0 TAB Clopidogrel (Plavix) 75 Mg Tab 75 MG PO DAILY Blood Clot Prevention #30 Ref 0 TAB Darunavir (Prezista) 800 Mg Tab 600 MG PO HS Mgmt Viral Infection #30 Ref 0 TAB Diclofenac Topical (Diclofenac Topical) 1% Gel 1 APPLIC TOPICAL HS Pain Management #100 Ref 0 GM Docusate Sodium (Docusate Sodium) 100 Mg Cap 100 MG PO BID Prevent Constipation #60 Ref 0 CAP Emtricitabine-Tenofovir Alafenamide (Descovy) 200-25 mg Tab 1 TAB PO DAILY Mgmt Viral Infection #30 Ref 0 TAB Enalapril (Enalapril) 2.5 Mg Tab 2.5 MG PO HS #30 Ref 0 TAB Entecavir (Entecavir) 1 Mg Tab 1 MG PO DAILY Mgmt Viral Infection #30 Ref 0 TAB Etravirine (Intelence) 200 Mg Tab 200 MG PO BID Mgmt Viral Infection Ref 0 TAB Fentanyl Patch 72 HR (Fentanyl Patch 72 HR) 25 Mcg/Hr Patch 25 MCG T-DERMAL Q72H Pain Management #10 Ref 0 PATCH Metformin (Metformin) 1,000 Mg Tab 1000 MG PO BIDPC With meals Blood Sugar Management #60 Ref 0 TAB Ritonavir (Norvir) 100 Mg Cap 100 MG PO BID Mgmt Viral Infection #180 Ref 0 CAP Rosuvastatin (Rosuvastatin) 5 Mg Tab 5 MG PO HS EVERY WEDNESDAY, WEDNESDAY AND WEDNESDAY Cholesterol Management #30 Ref 0 TAB Sennosides (Senna Laxative) 8.6 Mg Tab 1 TAB PO BID Bossman Duke MD Aug 28, 2016 08:38
== END 2016-08-22 11:25 | disposition home or self-care (01) | DRG 199 ==
LOC: HRAD 10:45 → HRIP 10:54 → HRAD 14:29 → N07B 14:30 → HRAD 16:00 → HRIP 16:15
PROVIDERS: ADMIT Internal Medicine; ATTEND Internal Medicine
PROC: 0W9930Z Drainage of Right Pleural Cavity with Drainage Device, Percutaneous Approach (ICD-10-PCS; principal; 2016-08-19)
DX: J93.83 Other pneumothorax (principal); B20 Human immunodeficiency virus [HIV] disease; E11.649 Type 2 diabetes mellitus with hypoglycemia without coma; B16.1 Acute hepatitis B with delta-agent without hepatic coma; G89.29 Other chronic pain; I10 Essential (primary) hypertension; Z87.891 Personal history of nicotine dependence; Z86.73 Personal history of transient ischemic attack (TIA), and cerebral infarction without residual deficits
CPT/HCPCS: 32557; 71010; 85025; 85610; 85730; C1729; C1769; J2060; J3010